=== PATIENT | female | born 1950 | race Caucasian/White ===

== ENCOUNTER 2016-02-27 13:30 | Inpatient (IN) | payer OTHER ==
[~2016-02-27] VITALS: Ht 160 cm; Wt 93.3 kg
[~2016-02-27 13:30] MED LIST: BUSP10TA90 PO; CALC-30; LEVO500T3 PO; LEVO50TA66; METR500T PO; MULTCAP45; TRIA50CA40; VENL150C; ZOLP5TAB5 PO
[2016-02-27 15:03] LABS: Basophils # (auto) 0.1 uL; Basophils % (auto) 0.7 % (0.0-2.0); Eosinophils # (auto) 0.2 uL; Eosinophils % (auto) 1.7 % (0.0-7.0); Hematocrit 43.6 % (36.0-46.0); Hemoglobin 14.2 g/dL (12.2-16.2); Lymphocytes # (auto) 1.6 uL; Lymphocytes % (auto) 14.6 % (10.0-50.0); Mean Corpuscular Hemoglobin 30.4 pg (28.0-32.0); Mean Corpuscular Hgb Conc. 32.5 g/dL (32.0-36.0); Mean Corpuscular Volume 93.3 fL (80.0-100.0); Mean Platelet Volume 6.6 fL (7.4-10.4); Monocytes # (auto) 0.9 uL; Monocytes % (auto) 8.2 % (0.0-12.0); Neutrophils % (auto) 74.8 % (37.0-80.0); Platelet Count (auto) 543 10^3/uL (140-450); Red Cell Distribution Width 13.1 % (11.6-16.0); White Blood Cell 10.7 10^3/uL (4.4-10.8)
[2016-02-27 15:24] LABS: Albumin 3.1 g/dL (3.4-5.0); Calcium 9.1 mg/dL (8.5-10.1); Potassium 5.1 mmol/L (3.5-5.1)
[2016-02-27 15:25] LABS: BUN/Creatinine Ratio 16.9
[2016-02-27 15:39] LABS: Bilirubin, Total 0.4 mg/dL (0.2-1.0); Total Protein 7.6 g/dL (6.4-8.2)
[2016-02-27] MEDS ORDERED: cefTRIAXone 1GM/50ML D5W 50 ML IV ONE (21:15)
[2016-02-27] MEDS ORDERED: HYDROcodone-ACET 5/325MG TAB PO PRN (21:45)
[2016-02-27] MEDS ORDERED: ZOLPIDEM TARTRATE 5 MG TAB PO PRN (21:45)
[2016-02-27] MEDS ORDERED: MORPHINE SULF INJ 2 MG/ML SYRINGE 1ML IV PRN (21:45)
[2016-02-27] MEDS ORDERED: ONDANSETRON HCL 4 MG/2 ML VIAL IV PRN (21:45)
[2016-02-27] MEDS ORDERED: PANTOPRAZOLE SODIUM 40 MG/10 ML VIAL IV ONE (21:45)
[2016-02-27] MEDS: metroNIDAZOLE 500MG/100ML 100 ML IV SCH (21:58)
[2016-02-27] MEDS: SODIUM CHLORIDE 0.9% 1,000 ML IV SCH (21:58)
[2016-02-27] MEDS: busPIRone HCL 10 MG TAB PO SCH (22:16)
[2016-02-27] MEDS ORDERED: AMINO ACID INFUSION IN D10W 1,000 ML IV ONE (22:30)
[2016-02-27 23:03] VITALS: BP 102/67
[2016-02-28 05:18] VITALS: BP 100/61
[2016-02-28] MEDS: metroNIDAZOLE 500MG/100ML 100 ML IV SCH ×2 (06:00→22:19)
[2016-02-28] MEDS: LEVOTHYROXINE SODIUM 50 MCG TAB PO SCH (06:41)
[2016-02-28 07:04] LABS: Basophils # (auto) 0.1 uL; Eosinophils # (auto) 0.3 uL; Eosinophils % (auto) 3.2 % (0.0-7.0); Hematocrit 38.7 % (36.0-46.0); Hemoglobin 12.7 g/dL (12.2-16.2); Lymphocytes # (auto) 1.3 uL; Lymphocytes % (auto) 15.7 % (10.0-50.0); Mean Corpuscular Hemoglobin 30.5 pg (28.0-32.0); Mean Corpuscular Hgb Conc. 32.7 g/dL (32.0-36.0); Mean Corpuscular Volume 93.2 fL (80.0-100.0); Mean Platelet Volume 7.1 fL (7.4-10.4); Monocytes # (auto) 0.9 uL; Monocytes % (auto) 10.6 % (0.0-12.0); Neutrophils # (auto) 5.7 uL; Neutrophils % (auto) 69.5 % (37.0-80.0); Platelet Count (auto) 454 10^3/uL (140-450); Red Cell Distribution Width 13.3 % (11.6-16.0); White Blood Cell 8.1 10^3/uL (4.4-10.8)
[2016-02-28 07:17] LABS: INR 1.11 (0.9-1.15); Partial Thromboplastin Time 26.7 sec (22.64-33.71); Prothrombin Time 11.4 sec (9.37-12.3)
[2016-02-28 07:34] LABS: Albumin 2.6 g/dL (3.4-5.0); BUN/Creatinine Ratio 17.5; Bilirubin, Total 0.4 mg/dL (0.2-1.0); Calcium 8.6 mg/dL (8.5-10.1); Magnesium 2.2 mg/dL (1.6-2.6); Phosphorus 2.9 mg/dL (2.6-4.90); Potassium 3.2 mmol/L (3.5-5.1); Total Protein 6.4 g/dL (6.4-8.2)
[2016-02-28] MEDS: cefTRIAXone 1GM/50ML D5W 50 ML IV SCH (08:58)
[2016-02-28] MEDS: SODIUM CHLORIDE 0.9% 1,000 ML IV SCH ×2 (08:58→19:56)
[2016-02-28 09:00] VITALS: BP 96/62
[2016-02-28] MEDS: POTASSIUM CHL 20MEQ/100ML 100 ML IV SCH ×2 (09:57→14:34)
[2016-02-28] MEDS: busPIRone HCL 10 MG TAB PO SCH ×2 (09:57→22:19)
[2016-02-28] MEDS: PANTOPRAZOLE SODIUM 40 MG/10 ML VIAL IV SCH (09:57)
[2016-02-28] MEDS: ACCU-CHEK COMFORT CURVE STRIP VI SCH ×3 (12:00→23:36)
[2016-02-28] MEDS: InsuLIN REG 1unit/0.01ml Soln (100units/ml) SC SCH ×3 (12:00→23:36)
[2016-02-28] MEDS ORDERED: DEXTROSE (50%) 50ML SYRG IV SCH (12:00)
[2016-02-28 13:00] VITALS: BP 101/61
[2016-02-28] MEDS ORDERED: metroNIDAZOLE 500MG/100ML 100 ML IV ONE (13:00)
[2016-02-28] MEDS ORDERED: LIDOCAINE 1% HCL (LOCAL ANESTH.) INJ 20ML MDV ID ONE (14:00)
[2016-02-28] MEDS ORDERED: POTASSIUM CHL 20 Meq TABLET PO ONE (14:15)
[2016-02-28 16:00] VITALS: BP 105/65
[2016-02-28] MEDS ORDERED: TPN PER PHARMACY 0 ML IV SCH (17:15)
[2016-02-28] MEDS ORDERED: CLINIMIX PER PHARMACY IV NR ×8 (20:00)
[2016-02-28 22:00] VITALS: BP 121/37
[2016-02-28] MEDS: SODIUM CHLOR 0.9% PF (SALINE LOCK) 10ML VIAL IV SCH (22:19)
[2016-02-29 05:51] VITALS: BP 103/64
[2016-02-29] MEDS: InsuLIN REG 1unit/0.01ml Soln (100units/ml) SC SCH ×3 (06:00→18:00)
[2016-02-29] MEDS: metroNIDAZOLE 500MG/100ML 100 ML IV SCH ×3 (06:09→21:24)
[2016-02-29] MEDS: ACCU-CHEK COMFORT CURVE STRIP VI SCH ×3 (06:11→18:00)
[2016-02-29] MEDS: SODIUM CHLORIDE 0.9% 1,000 ML IV SCH ×2 (06:12→18:16)
[2016-02-29] MEDS: LEVOTHYROXINE SODIUM 50 MCG TAB PO SCH (06:12)
[2016-02-29 06:58] LABS: Basophils # (auto) 0.1 uL; Basophils % (auto) 1.2 % (0.0-2.0); Eosinophils # (auto) 0.3 uL; Eosinophils % (auto) 5.9 % (0.0-7.0); Hemoglobin 9.2 g/dL (12.2-16.2); Lymphocytes % (auto) 20.1 % (10.0-50.0); Mean Corpuscular Hemoglobin 30.6 pg (28.0-32.0); Mean Corpuscular Hgb Conc. 32.7 g/dL (32.0-36.0); Mean Corpuscular Volume 93.6 fL (80.0-100.0); Monocytes # (auto) 0.5 uL; Monocytes % (auto) 9.9 % (0.0-12.0); Neutrophils # (auto) 3.1 uL; Neutrophils % (auto) 62.9 % (37.0-80.0); Platelet Count (auto) 300 10^3/uL (140-450); Red Cell Distribution Width 13.5 % (11.6-16.0); White Blood Cell 4.9 10^3/uL (4.4-10.8)
[2016-02-29] MEDS: cefTRIAXone 1GM/50ML D5W 50 ML IV SCH (08:29)
[2016-02-29 09:36] VITALS: BP 117/54
[2016-02-29 09:52] LABS: Albumin 2.3 g/dL (3.4-5.0); BUN/Creatinine Ratio 17.8; Bilirubin, Total 0.3 mg/dL (0.2-1.0); Magnesium 2.1 mg/dL (1.6-2.6); Phosphorus 2.7 mg/dL (2.6-4.90); Potassium 3.7 mmol/L (3.5-5.1)
[2016-02-29] MEDS: PANTOPRAZOLE SODIUM 40 MG/10 ML VIAL IV SCH (10:03)
[2016-02-29] MEDS: SODIUM CHLOR 0.9% PF (SALINE LOCK) 10ML VIAL IV SCH ×2 (10:04→21:24)
[2016-02-29] MEDS: busPIRone HCL 10 MG TAB PO SCH ×2 (10:04→21:24)
[2016-02-29] MEDS ORDERED: GASTROGRAFIN 120 ML SOL ONE (10:55)
[2016-02-29 13:00] VITALS: BP 102/56
[2016-02-29] MEDS ORDERED: LORazepam 2MG/ML-1ML VIAL IV ONE (15:15)
[2016-02-29 16:51] VITALS: BP 113/69
[2016-02-29] MEDS ORDERED: TPN PER PHARMACY IV NR ×10 (20:00)
[2016-02-29 22:00] VITALS: BP 98/69
[2016-03-01] MEDS: ACCU-CHEK COMFORT CURVE STRIP VI SCH ×5 (00:06→23:38)
[2016-03-01 05:00] VITALS: BP 123/73
[2016-03-01] MEDS: SODIUM CHLORIDE 0.9% 1,000 ML IV SCH ×2 (05:19→21:34)
[2016-03-01] MEDS: metroNIDAZOLE 500MG/100ML 100 ML IV SCH (05:37)
[2016-03-01] MEDS: InsuLIN REG 1unit/0.01ml Soln (100units/ml) SC SCH ×5 (06:08→23:39)
[2016-03-01] MEDS: LEVOTHYROXINE SODIUM 50 MCG TAB PO SCH (06:09)
[2016-03-01 07:18] LABS: Basophils # (auto) 0.1 uL; Eosinophils # (auto) 0.2 uL; Eosinophils % (auto) 3.9 % (0.0-7.0); Hematocrit 36.6 % (36.0-46.0); Lymphocytes # (auto) 1.1 uL; Lymphocytes % (auto) 17.3 % (10.0-50.0); Mean Corpuscular Hemoglobin 30.5 pg (28.0-32.0); Mean Corpuscular Hgb Conc. 32.8 g/dL (32.0-36.0); Mean Corpuscular Volume 93.1 fL (80.0-100.0); Monocytes # (auto) 0.5 uL; Monocytes % (auto) 8.2 % (0.0-12.0); Neutrophils # (auto) 4.4 uL; Neutrophils % (auto) 69.6 % (37.0-80.0); Platelet Count (auto) 360 10^3/uL (140-450); Red Cell Distribution Width 13.3 % (11.6-16.0); White Blood Cell 6.3 10^3/uL (4.4-10.8)
[2016-03-01 07:39] LABS: Albumin 2.3 g/dL (3.4-5.0); Bilirubin, Total 0.3 mg/dL (0.2-1.0); Calcium 8.2 mg/dL (8.5-10.1); Magnesium 2.1 mg/dL (1.6-2.6); Phosphorus 2.7 mg/dL (2.6-4.90); Potassium 3.6 mmol/L (3.5-5.1); Total Protein 5.9 g/dL (6.4-8.2)
[2016-03-01 09:00] VITALS: BP 135/76
[2016-03-01] MEDS: PANTOPRAZOLE SODIUM 40 MG/10 ML VIAL IV SCH (09:45)
[2016-03-01] MEDS: SODIUM CHLOR 0.9% PF (SALINE LOCK) 10ML VIAL IV SCH ×2 (09:45→22:14)
[2016-03-01] MEDS: cefTRIAXone 1GM/50ML D5W 50 ML IV SCH (09:45)
[2016-03-01] MEDS: busPIRone HCL 10 MG TAB PO SCH ×2 (09:47→22:14)
[2016-03-01] MEDS ORDERED: LEVOFLOXACIN 500MG 100 ML IV ONE (11:45)
[2016-03-01 13:00] VITALS: BP 133/83
[2016-03-01 17:00] VITALS: BP 127/74
[2016-03-01] MEDS ORDERED: TPN PER PHARMACY IV NR ×10 (20:00)
[2016-03-01] MEDS: ACETAMINOPHEN 325 MG TAB PO PRN (22:14)
[2016-03-01 22:37] VITALS: BP 118/71
[2016-03-02 05:00] VITALS: BP 125/82
[2016-03-02] MEDS: ACCU-CHEK COMFORT CURVE STRIP VI SCH ×4 (05:20→23:48)
[2016-03-02] MEDS: InsuLIN REG 1unit/0.01ml Soln (100units/ml) SC SCH ×3 (05:57→17:33)
[2016-03-02] MEDS: LEVOTHYROXINE SODIUM 50 MCG TAB PO SCH (06:30)
[2016-03-02 07:04] LABS: Albumin 2.5 g/dL (3.4-5.0); BUN/Creatinine Ratio 16.7; Bilirubin, Total 0.3 mg/dL (0.2-1.0); Calcium 8.3 mg/dL (8.5-10.1); Magnesium 2.1 mg/dL (1.6-2.6); Phosphorus 3.3 mg/dL (2.6-4.90); Potassium 3.9 mmol/L (3.5-5.1)
[2016-03-02 09:00] VITALS: BP 130/69
[2016-03-02] MEDS: SODIUM CHLOR 0.9% PF (SALINE LOCK) 10ML VIAL IV SCH ×2 (09:13→21:52)
[2016-03-02] MEDS: busPIRone HCL 10 MG TAB PO SCH ×2 (09:14→21:51)
[2016-03-02] MEDS: LEVOFLOXACIN 500MG 100 ML IV SCH (09:21)
[2016-03-02 12:57] VITALS: BP 113/71
[2016-03-02] MEDS: SODIUM CHLORIDE 0.9% 1,000 ML IV SCH ×2 (16:26→20:00)
[2016-03-02 17:10] VITALS: BP 96/68
[2016-03-02] MEDS ORDERED: TPN PER PHARMACY IV NR ×10 (20:00)
[2016-03-02 21:21] VITALS: BP 124/69
[2016-03-03 05:31] VITALS: BP 106/61
[2016-03-03] MEDS: InsuLIN REG 1unit/0.01ml Soln (100units/ml) SC SCH ×5 (05:56→23:48)
[2016-03-03] MEDS: ACCU-CHEK COMFORT CURVE STRIP VI SCH ×4 (05:56→23:48)
[2016-03-03] MEDS: LEVOTHYROXINE SODIUM 50 MCG TAB PO SCH (05:58)
[2016-03-03 07:07] LABS: Albumin 2.6 g/dL (3.4-5.0); BUN/Creatinine Ratio 16.3; Bilirubin, Total 0.3 mg/dL (0.2-1.0); Calcium 8.5 mg/dL (8.5-10.1); Phosphorus 3.2 mg/dL (2.6-4.90); Potassium 3.8 mmol/L (3.5-5.1); Total Protein 6.4 g/dL (6.4-8.2)
[2016-03-03 09:28] VITALS: BP 108/65
[2016-03-03] MEDS: busPIRone HCL 10 MG TAB PO SCH ×2 (10:23→21:38)
[2016-03-03] MEDS: LEVOFLOXACIN 500MG 100 ML IV SCH (10:23)
[2016-03-03] MEDS: SODIUM CHLOR 0.9% PF (SALINE LOCK) 10ML VIAL IV SCH ×2 (10:23→21:38)
[2016-03-03 13:01] VITALS: BP 130/78
[2016-03-03] MEDS: ACETAMINOPHEN 325 MG TAB PO PRN (14:52)
[2016-03-03] MEDS: SODIUM CHLORIDE 0.9% 1,000 ML IV SCH (16:10)
[2016-03-03 16:41] VITALS: BP 113/66
[2016-03-03] MEDS ORDERED: TPN PER PHARMACY IV NR ×10 (20:00)
[2016-03-03 21:39] VITALS: BP 121/71
[2016-03-04 05:00] VITALS: BP 99/61
[2016-03-04] MEDS: ACCU-CHEK COMFORT CURVE STRIP VI SCH ×3 (05:41→16:35)
[2016-03-04] MEDS: InsuLIN REG 1unit/0.01ml Soln (100units/ml) SC SCH ×3 (05:41→16:35)
[2016-03-04] MEDS: LEVOTHYROXINE SODIUM 50 MCG TAB PO SCH (06:19)
[2016-03-04 06:59] LABS: Albumin 2.5 g/dL (3.4-5.0); BUN/Creatinine Ratio 26.8; Bilirubin, Total 0.4 mg/dL (0.2-1.0); Calcium 8.5 mg/dL (8.5-10.1); Magnesium 2.2 mg/dL (1.6-2.6); Phosphorus 3.4 mg/dL (2.6-4.90); Potassium 4.1 mmol/L (3.5-5.1); Total Protein 6.3 g/dL (6.4-8.2)
[2016-03-04 09:01] VITALS: BP 106/61
[2016-03-04] MEDS: busPIRone HCL 10 MG TAB PO SCH (09:28)
[2016-03-04] MEDS: LEVOFLOXACIN 500MG 100 ML IV SCH (09:28)
[2016-03-04] MEDS: SODIUM CHLOR 0.9% PF (SALINE LOCK) 10ML VIAL IV SCH (09:29)
[2016-03-04] MEDS: SODIUM CHLORIDE 0.9% 1,000 ML IV SCH (09:29)
[2016-03-04 13:00] VITALS: BP 114/69
[2016-03-04] MEDS ORDERED: TPN PER PHARMACY IV NR ×10 (20:00)
== END 2016-03-04 19:45 | DRG 863 ==
LOC: ER 13:47 → OVERFLOW 13:48 → CENTRAL 22:19
PROVIDERS: ADMIT Internal Medicine; ATTEND Internal Medicine
PROC: 02HV33Z Insertion of Infusion Device into Superior Vena Cava, Percutaneous Approach (ICD-10-PCS; principal; 2016-02-27)
DX: T81.4XXA Infection following a procedure, initial encounter (principal); L03.311 Cellulitis of abdominal wall; E44.0 Moderate protein-calorie malnutrition; K63.2 Fistula of intestine; M19.90 Unspecified osteoarthritis, unspecified site; I10 Essential (primary) hypertension; F32.9 Major depressive disorder, single episode, unspecified; L98.8 Other specified disorders of the skin and subcutaneous tissue; F41.9 Anxiety disorder, unspecified; E03.9 Hypothyroidism, unspecified; Z79.899 Other long term (current) drug therapy; Z98.890 Other specified postprocedural states; Z83.3 Family history of diabetes mellitus; Z90.49 Acquired absence of other specified parts of digestive tract; Z90.710 Acquired absence of both cervix and uterus
CPT/HCPCS: 36415; 36569; 71010; 74250; 80053; 82040; 82962; 83735; 84100; 84478; 85025; 85610; 85730; 87040; 87077; 87081; 87186; 87205; 96365; 96375; C9113; J0696; J1815; J1956; J3480; J3490

== ENCOUNTER 2016-03-08 14:54 | Inpatient (IN) | payer OTHER ==
[~2016-03-08] VITALS: Ht 167.6 cm; Wt 91.3 kg
[2016-03-08] MEDS ORDERED: TEMAZEPAM 15 MG CAP PO PRN (17:45)
[2016-03-08] MEDS ORDERED: ACETAMINOPHEN 500 MG TAB PO PRN (17:45)
[2016-03-08] MEDS ORDERED: PROMETHAZINE HCL 25 MG/ML 1ML IV PRN (17:45)
[2016-03-08] MEDS ORDERED: PIPERACILLIN-TAZOB 3.375GM 100 ML IV ONE (17:45)
[2016-03-08] MEDS ORDERED: MORPHINE SULF INJ 2 MG/ML SYRINGE 1ML IV PRN (17:45)
[2016-03-08] MEDS ORDERED: HYDROcodone-ACET 5/325MG TAB PO PRN (17:45)
[2016-03-08] MEDS ORDERED: VANCOMYCIN PER PHARMACY 0 MG IV SCH (17:45)
[2016-03-08] MEDS ORDERED: LORazepam 0.5 MG TAB PO PRN (17:45)
[2016-03-08] MEDS: SODIUM CHLORIDE 0.9% 1,000 ML IV SCH (18:03)
[2016-03-08 18:42] LABS: Basophils # (auto) 0.1 uL; Basophils % (auto) 1.1 % (0.0-2.0); Eosinophils # (auto) 0.2 uL; Eosinophils % (auto) 2.3 % (0.0-7.0); Hemoglobin 13.7 g/dL (12.2-16.2); Lymphocytes # (auto) 1.8 uL; Mean Corpuscular Hemoglobin 30.3 pg (28.0-32.0); Mean Corpuscular Hgb Conc. 32.6 g/dL (32.0-36.0); Mean Corpuscular Volume 92.9 fL (80.0-100.0); Mean Platelet Volume 7.6 fL (7.4-10.4); Monocytes # (auto) 0.5 uL; Monocytes % (auto) 7.8 % (0.0-12.0); Neutrophils # (auto) 4.3 uL; Neutrophils % (auto) 62.8 % (37.0-80.0); Platelet Count (auto) 320 10^3/uL (140-450); Red Cell Distribution Width 13.8 % (11.6-16.0); White Blood Cell 6.9 10^3/uL (4.4-10.8)
[2016-03-08 18:53] LABS: BUN/Creatinine Ratio 29.1; Calcium 8.6 mg/dL (8.5-10.1); Potassium 3.9 mmol/L (3.5-5.1)
[2016-03-08 18:56] LABS: Bilirubin, Total 0.6 mg/dL (0.2-1.0); Total Protein 7.3 g/dL (6.4-8.2)
[2016-03-08 18:57] LABS: INR 1.08 (0.9-1.15); Partial Thromboplastin Time 26.8 sec (22.64-33.71); Prothrombin Time 11.1 sec (9.37-12.3)
[2016-03-08] MEDS ORDERED: IOHEXOL 300 MG/ML 100ML BOTTLE IJ ONE (19:07)
[2016-03-08 20:00] VITALS: BP 116/70
[2016-03-08] MEDS: VANCOMYCIN 1GM/250ML D5W 250 ML IV SCH (20:20)
[2016-03-08] MEDS: FAMOTIDINE 20 MG TAB PO SCH (21:46)
[2016-03-08 22:00] VITALS: BP 116/70
[2016-03-09] MEDS: PIPERACILLIN-TAZOB 3.375GM 100 ML IV SCH ×4 (00:40→18:00)
[2016-03-09] MEDS: SODIUM CHLORIDE 0.9% 1,000 ML IV SCH ×2 (03:44→13:32)
[2016-03-09 05:58] VITALS: BP 108/59
[2016-03-09 06:22] LABS: Basophils # (auto) 0.1 uL; Basophils % (auto) 1.6 % (0.0-2.0); Eosinophils # (auto) 0.3 uL; Hematocrit 38.3 % (36.0-46.0); Hemoglobin 12.7 g/dL (12.2-16.2); Lymphocytes # (auto) 1.5 uL; Lymphocytes % (auto) 26.6 % (10.0-50.0); Mean Corpuscular Hemoglobin 30.7 pg (28.0-32.0); Mean Corpuscular Hgb Conc. 33.1 g/dL (32.0-36.0); Mean Corpuscular Volume 92.7 fL (80.0-100.0); Mean Platelet Volume 7.8 fL (7.4-10.4); Monocytes # (auto) 0.5 uL; Monocytes % (auto) 9.8 % (0.0-12.0); Neutrophils # (auto) 3.1 uL; Platelet Count (auto) 291 10^3/uL (140-450); Red Cell Distribution Width 13.6 % (11.6-16.0); White Blood Cell 5.5 10^3/uL (4.4-10.8)
[2016-03-09 06:52] LABS: Albumin 2.8 g/dL (3.4-5.0); BUN/Creatinine Ratio 27.8; Bilirubin, Total 0.8 mg/dL (0.2-1.0); Calcium 8.6 mg/dL (8.5-10.1); Potassium 3.7 mmol/L (3.5-5.1); Total Protein 6.4 g/dL (6.4-8.2)
[2016-03-09 09:00] VITALS: BP 102/56
[2016-03-09] MEDS: VANCOMYCIN 1GM/250ML D5W 250 ML IV SCH (09:00)
[2016-03-09] MEDS: FAMOTIDINE 20 MG TAB PO SCH (09:01)
[2016-03-09] MEDS ORDERED: TPN PER PHARMACY 0 ML IV SCH (10:00)
[2016-03-09 10:11] LABS: Magnesium 2.1 mg/dL (1.6-2.6); Phosphorus 4.3 mg/dL (2.6-4.90)
[2016-03-09 12:45] VITALS: BP 111/72
[2016-03-09 17:00] VITALS: BP 113/78
[2016-03-09 17:09] VITALS: BP 105/49
[2016-03-09] MEDS ORDERED: SODIUM CHLORIDE 0.9% 1,000 ML IV SCH (20:00)
[2016-03-09] MEDS ORDERED: DEXTROSE (50%) 50ML SYRG IV SCH (20:00)
[2016-03-09] MEDS ORDERED: TPN PER PHARMACY IV NR ×9 (20:00)
[2016-03-10] MEDS ORDERED: InsuLIN REG 1unit/0.01ml Soln (100units/ml) SC SCH
[2016-03-10] MEDS ORDERED: ACCU-CHEK COMFORT CURVE STRIP VI SCH
== END 2016-03-09 19:09 | DRG 863 ==
LOC: EDBD 14:54 → ER 15:15 → OVERFLOW 15:16 → WEST WING 19:38
PROVIDERS: ADMIT Internal Medicine; ATTEND Internal Medicine
DX: T81.4XXA Infection following a procedure, initial encounter (principal); L02.211 Cutaneous abscess of abdominal wall; I10 Essential (primary) hypertension; F41.9 Anxiety disorder, unspecified; F32.9 Major depressive disorder, single episode, unspecified; M19.90 Unspecified osteoarthritis, unspecified site; E66.01 Morbid (severe) obesity due to excess calories; Z90.49 Acquired absence of other specified parts of digestive tract; Z90.710 Acquired absence of both cervix and uterus; Z82.49 Family history of ischemic heart disease and other diseases of the circulatory system; Z83.3 Family history of diabetes mellitus
CPT/HCPCS: 36415; 74176; 80053; 83735; 84100; 84478; 85025; 85049; 85610; 85652; 85730; 87081; 96374; J1815; J2543

== ENCOUNTER 2016-08-02 12:28 | Emergency (ER) | payer OTHER ==
[~2016-08-02] VITALS: Ht 162.6 cm; Wt 94.8 kg
[~2016-08-02 12:28] MED LIST changes: +LEVO500T21 PO; -LEVO500T3 PO
[2016-08-02 13:50] LABS: Basophils # (auto) 0 uL; Basophils % (auto) 0.5 % (0.0-2.0); Eosinophils # (auto) 0.1 uL; Hematocrit 44.2 % (36.0-46.0); Lymphocytes # (auto) 1.5 uL; Lymphocytes % (auto) 23.1 % (10.0-50.0); Mean Corpuscular Hemoglobin 30.2 pg (28.0-32.0); Mean Corpuscular Hgb Conc. 33.9 g/dL (32.0-36.0); Mean Corpuscular Volume 89.2 fL (80.0-100.0); Mean Platelet Volume 7.6 fL (7.4-10.4); Monocytes # (auto) 0.4 uL; Monocytes % (auto) 6.7 % (0.0-12.0); Neutrophils # (auto) 4.5 uL; Neutrophils % (auto) 67.7 % (37.0-80.0); Platelet Count (auto) 363 10^3/uL (140-450); Red Cell Distribution Width 13.2 % (11.6-16.0); White Blood Cell 6.7 10^3/uL (4.4-10.8)
[2016-08-02 14:02] LABS: Calcium 8.8 mg/dL (8.5-10.1); Potassium 3.8 mmol/L (3.5-5.1)
[2016-08-02 14:05] LABS: Albumin 3.5 g/dL (3.4-5.0); BUN/Creatinine Ratio 29.2
[2016-08-02 14:08] LABS: Bilirubin, Total 0.5 mg/dL (0.2-1.0); Total Protein 7.4 g/dL (6.4-8.2)
[2016-08-02 16:00] VITALS: BP 112/81
== END 2016-08-02 16:58 | disposition home or self-care (01) ==
LOC: ER 12:28
DX: Z48.03 Encounter for change or removal of drains (principal); M19.90 Unspecified osteoarthritis, unspecified site; I10 Essential (primary) hypertension; Z91.041 Radiographic dye allergy status
CPT/HCPCS: 36415; 80053; 85025